=== PATIENT | male | born 1985 | race Caucasian/White ===

== ENCOUNTER 2019-08-30 07:00 | Emergency (ER) | payer OTHER ==
[2019-08-30] MEDS ORDERED: BENADRYL 50 MG/ML IV ONE (07:25)
[2019-08-30] MEDS ORDERED: MORPHINE SULFATE 4 MG INJ IV ONE (07:25)
[2019-08-30] MEDS ORDERED: Sodium Chloride 0.9% 1000 ML 1,000 ML IV STA ×2 (07:25→08:52)
[2019-08-30] MEDS ORDERED: Zofran 4 MG/2 ML VIAL IV ONE (07:25)
[2019-08-30] MEDS ORDERED: Inapsine 5 MG/2 ML IV ONE (07:25)
[2019-08-30] MEDS ORDERED: Zofran 4 MG/2 ML VIAL ONE (07:35)
[2019-08-30] MEDS ORDERED: BENADRYL 50 MG/ML ONE (07:35)
[2019-08-30] MEDS ORDERED: Inapsine 5 MG/2 ML ONE (07:35)
[2019-08-30] MEDS ORDERED: MORPHINE SULFATE 4 MG INJ ONE (07:36)
[2019-08-30] MEDS ORDERED: Sodium Chloride 0.9% 1000 ML 1,000 ML ONE ×2 (07:36→08:24)
--- NOTE | 2019-08-30 07:36 | ERPHSYRPT ---
- History of Present Illness Time Seen by Provider: 08/30/19 07:18 Patient Subjective Stated Complaint: pt states that he has been vomiting every 20 minutes since 0200 this morning, pt states headache and throat pain due to vomiting, pt states that he has diarrhea everytime he vomites Triage Nursing Assessment: pt ambulated into the er, pt is axo x4, pt c/o n/v/d , pt has hypoactive bowel sounds, abdomen is obese and soft, pt has tenderness to midline abdomen, pt is tachycardic, pt is hypertensive Physician History: Epigastric pain, N/V, started at 2 am Location: epigastric Quality: sharp, N/V Radiation: none Severity: moderate Duration: 2 am Timing: suddenly Modifying factors/associated signs and symptoms: none tried, diarrhea Timing/Duration: today Activities at Onset: none Quality: sharpness Abdominal Pain Onset Location: epigastric Pain Radiation: no radiation Allergies/Adverse Reactions: bupropion [From Wellbutrin] Allergy (Verified 08/30/19 07:17) Home Medications: Atorvastatin Calcium 10 mg PO HS 08/30/19 [History] Lisinopril/Hydrochlorothiazide [Lisinopril-Hctz 20-25 mg Tab] 1 tab PO DAILY [History] Metformin HCl 1,000 mg PO BID 08/30/19 [History] Mometasone Furoate [Asmanex Hfa] 1 puff IH BID 08/30/19 [History] clonazePAM [Clonazepam] 0.25 mg PO BID 08/30/19 [History] Hx Tetanus, Diphtheria Vaccination/Date Given: Yes Hx Influenza Vaccination/Date Given: Yes Hx Pneumococcal Vaccination/Date Given: Yes Immunizations Up to Date: Yes - Review of Systems Constitutional: No Fever, No Chills Eyes: No Symptoms Ears, Nose, & Throat: No Symptoms Respiratory: No Cough, No Dyspnea Cardiac: No Chest Pain, No Edema, No Syncope Abdominal/Gastrointestinal: Abdominal Pain, Nausea, Vomiting, Diarrhea Genitourinary Symptoms: No Dysuria Musculoskeletal: No Back Pain, No Neck Pain Skin: No Rash Neurological: No Dizziness, No Focal Weakness, No Sensory Changes Psychological: No Symptoms Endocrine: No Symptoms All Other Systems: Reviewed and Negative - Past Medical History Pertinent Past Medical History: Yes Cardiac History: High Cholesterol, Hypertension Respiratory History: Asthma Endocrine Medical History: Diabetes Type II Psycho-Social History: Anxiety - Past Surgical History Past Surgical History: Yes Gastrointestinal: Cholecystectomy Other Surgical History: distal bicep repair - Social History Smoking Status: Never smoker Exposure to second hand smoke: No Drug Use: none Patient Lives Alone: No - Nursing Vital Signs Nursing Vital Signs: Initial Vital Signs Temperature 98.4 F 08/30/19 07:01 Pulse Rate 131 H 08/30/19 07:01 Respiratory Rate 16 08/30/19 07:01 Blood Pressure 162/108 08/30/19 07:01 O2 Sat by Pulse Oximetry 96 08/30/19 07:01 Pain Scale Pain Intensity 0 - Physical Exam General Appearance: no apparent distress, alert Eye Exam: PERRL/EOMI, eyes nml inspection Ears, Nose, Throat Exam: normal ENT inspection, pharynx normal, moist mucous membranes Neck Exam: normal inspection, non-tender, supple, full range of motion Respiratory Exam: normal breath sounds, lungs clear, No respiratory distress Cardiovascular Exam: regular rate/rhythm, normal heart sounds Gastrointestinal/Abdomen Exam: soft, tenderness (epigastric tenderness, no rebound or guarding ), No mass Back Exam: normal inspection, normal range of motion, No CVA tenderness, No vertebral tenderness Extremity Exam: normal inspection, normal range of motion, pelvis stable Neurologic Exam: alert, oriented x 3, cooperative, normal mood/affect, nml cerebellar function, sensation nml, No motor deficits Skin Exam: normal color, warm, dry SpO2: 96 - Course Nursing assessment & vital signs reviewed: Yes EKG Interpreted by Me: RATE, Sinus Tach Ordered Tests: Active Orders 24 hr Category Date Time Status EKG-ER Only STAT Care 08/30/19 07:25 Active IV Insertion STAT Care 08/30/19 07:25 Active Nursing [Miscellaneous Nursing Order] ROUTINE Care 08/30/19 09:29 Active ABDOMEN AND PELVIS W CONTRAST [CT] Stat Exams 08/30/19 07:26 Completed CHEST 2 VIEWS (PA AND LAT) Stat Exams 08/30/19 07:25 Completed ABG [ARTERIAL BLOOD GASES] Stat Lab 08/30/19 08:22 Completed CBC W DIFF Stat Lab 08/30/19 07:40 Completed CMP Stat Lab 08/30/19 07:40 Completed CMP Stat Lab 08/30/19 10:25 Completed LIPASE Stat Lab 08/30/19 07:40 Completed TROPONIN Q3H Lab 08/30/19 07:40 Completed TROPONIN Q3H Lab 08/30/19 10:25 Completed TROPONIN Q3H Lab 08/30/19 13:30 Ordered TROPONIN Q3H Lab 08/30/19 16:30 Ordered TROPONIN Q3H Lab 08/30/19 19:30 Ordered UA W/RFX UR CULTURE Stat Lab 08/30/19 08:53 Completed Medication Summary Discontinued Medications Generic Name Dose Route Start Last Admin Trade Name Freq PRN Reason Stop Dose Admin Diphenhydramine HCl 25 mg 08/30/19 07:25 08/30/19 07:51 Benadryl 50 Mg/Ml IV 08/30/19 07:26 Not Given STAT ONE Diphenhydramine HCl Confirm 08/30/19 07:35 Benadryl 50 Mg/Ml Administered 08/30/19 07:36 Dose 50 mg .ROUTE .STK-MED ONE Droperidol 1.25 mg 08/30/19 07:25 08/30/19 07:48 Inapsine 5 Mg/2 Ml IV 08/30/19 07:26 1.25 mg STAT ONE Administration Droperidol Confirm 08/30/19 07:35 Inapsine 5 Mg/2 Ml Administered 08/30/19 07:36 Dose 5 mg .ROUTE .STK-MED ONE Sodium Chloride 1,000 mls @ 999 mls/hr 08/30/19 07:25 08/30/19 08:52 Sodium Chloride 0.9% 1000 Ml IV 08/30/19 08:25 Infused .Q1H1M STA Infusion Sodium Chloride Confirm 08/30/19 07:36 Sodium Chloride 0.9% 1000 Ml Administered 08/30/19 07:37 Dose 1,000 mls @ ud .ROUTE .STK-MED ONE Sodium Chloride Confirm 08/30/19 08:24 Sodium Chloride 0.9% 1000 Ml Administered 08/30/19 08:25 Dose 1,000 mls @ ud .ROUTE .STK-MED ONE Sodium Chloride 1,000 mls @ 999 mls/hr 08/30/19 08:52 08/30/19 10:27 Sodium Chloride 0.9% 1000 Ml IV 08/30/19 09:52 Infused .Q1H1M STA Infusion Lorazepam 1 mg 08/30/19 08:57 08/30/19 08:59 Ativan 2 Mg/1 Ml Vial IV 08/30/19 08:58 1 mg STAT ONE Administration Lorazepam Confirm 08/30/19 08:59 Ativan 2 Mg/1 Ml Vial Administered 08/30/19 09:00 Dose 2 mg .ROUTE .STK-MED ONE Morphine Sulfate 4 mg 08/30/19 07:25 08/30/19 07:49 Morphine Sulfate 4 Mg Inj IV 08/30/19 07:26 4 mg STAT ONE Administration Morphine Sulfate Confirm 08/30/19 07:36 Morphine Sulfate 4 Mg Inj Administered 08/30/19 07:37 Dose 4 mg .ROUTE .STK-MED ONE Ondansetron HCl 4 mg 08/30/19 07:25 08/30/19 07:48 Zofran 4 Mg/2 Ml Vial IV 08/30/19 07:26 4 mg STAT ONE Administration Ondansetron HCl Confirm 08/30/19 07:35 Zofran 4 Mg/2 Ml Vial Administered 08/30/19 07:36 Dose 4 mg .ROUTE .STK-MED ONE Lab/Rad Data: Laboratory Result Diagrams 08/30/19 07:40 08/30/19 10:25 Laboratory Results 08/30/19 08/30/19 08/30/19 Range/Units 10:25 10:25 08:53 WBC (4.0-10.5) K/mm3 RBC (4.1-5.6) M/mm3 Hgb (12.5-18.0) gm/dl Hct (42-50) % MCV (78-100) fl MCH (26-32) pg MCHC (32-36) g/dl RDW (11.5-14.0) % Plt Count (150-450) K/mm3 MPV (7.5-11.0) fl Gran % (36.0-66.0) % Eos # (Auto) (0-0.5) Absolute Lymphs (auto) (1.0-4.6) Absolute Monos (auto) (0.0-1.3) Lymphocytes % (24.0-44.0) % Monocytes % (0.0-12.0) % Eosinophils % (0.00-5.0) % Basophils % (0.0-0.4) % Absolute Granulocytes (1.4-6.9) Basophils # (0-0.4) Puncture Site pCO2 (35-45) mmHg pO2 (75-100) mmHg Base Excess (-2.0-2.0) O2 Saturation (94-100) g/dF ABG pH (7.35-7.45) ABG HCO3 (22-28) ABG O2 Sat (Measured) (95-100) % Oniel Test A-a Gradient a/A Ratio Hemoglobin Carboxyhemoglobin (0.0-6.9) % THgb Methemoglobin (1.4-1.5) % Temperature C POC O2 Flow Rate % Sodium 136 L (137-145) mmol/L Potassium 4.1 (3.5-5.1) mmol/L Chloride 100 (98-107) mmol/L Carbon Dioxide 26 (22-30) mmol/L Anion Gap 14.3 (5-15) MEQ/L BUN 14 (9-20) mg/dL Creatinine 0.82 (0.66-1.25) mg/dL Estimated GFR > 60.0 ML/MIN Glucose 212 H (74-106) mg/dL Calcium 8.6 (8.4-10.2) mg/dL Total Bilirubin 0.70 (0.2-1.3) mg/dL AST 77 H (17-59) U/L ALT 87 H (0-50) U/L Alkaline Phosphatase 84 (38-126) U/L Troponin I < 0.012 (0.000-0.034) ng/mL Serum Total Protein 7.1 (6.3-8.2) g/dL Albumin 4.1 (3.5-5.0) g/dL Lipase (23-300) U/L Urine Color YELLOW (YELLOW) Urine Appearance CLEAR (CLEAR) Urine pH 6.0 (5-6) Ur Specific [place] 1.046 (1.005-1.025) Urine Protein NEGATIVE (Negative) Urine Ketones SMALL (NEGATIVE) Urine Blood NEGATIVE (0-5) Evelio/ul Urine Nitrite NEGATIVE (NEGATIVE) Urine Bilirubin NEGATIVE (NEGATIVE) Urine Urobilinogen NEGATIVE (0-1) mg/dL Ur Leukocyte Esterase NEGATIVE (NEGATIVE) Urine WBC (Auto) 0-2 (0-5) /HPF Urine RBC (Auto) 0-2 (0-2) /HPF U Epithel Cells (Auto) RARE (FEW) /HPF Urine Bacteria (Auto) RARE (NEGATIVE) /HPF Urine Mucus (Auto) SLIGHT (NEGATIVE) /HPF Urine Culture Reflexed NO (NO) Urine Glucose 150 (NEGATIVE) mg/dL Influenza Type A Ag (NEGATIVE) Influenza Type B Ag (NEGATIVE) RSV (PCR) (Negative) 08/30/19 08/30/19 08/30/19 Range/Units 08:22 07:40 07:40 WBC (4.0-10.5) K/mm3 RBC (4.1-5.6) M/mm3 Hgb (12.5-18.0) gm/dl Hct (42-50) % MCV (78-100) fl MCH (26-32) pg MCHC (32-36) g/dl RDW (11.5-14.0) % Plt Count (150-450) K/mm3 MPV (7.5-11.0) fl Gran % (36.0-66.0) % Eos # (Auto) (0-0.5) Absolute Lymphs (auto) (1.0-4.6) Absolute Monos (auto) (0.0-1.3) Lymphocytes % (24.0-44.0) % Monocytes % (0.0-12.0) % Eosinophils % (0.00-5.0) % Basophils % (0.0-0.4) % Absolute Granulocytes (1.4-6.9) Basophils # (0-0.4) Puncture Site RIGHT RADIAL pCO2 38 (35-45) mmHg pO2 72 L (75-100) mmHg Base Excess 3.1 H (-2.0-2.0) O2 Saturation 94.1 (94-100) g/dF ABG pH 7.46 H (7.35-7.45) ABG HCO3 27.0 (22-28) ABG O2 Sat (Measured) 95.1 (95-100) % Oniel Test YES A-a Gradient 30 a/A Ratio 0.71 Hemoglobin 14.5 Carboxyhemoglobin 0.7 (0.0-6.9) % THgb Methemoglobin 0.3 L (1.4-1.5) % Temperature 37.0 C POC O2 Flow Rate 21 % Sodium (137-145) mmol/L Potassium 4.2 (3.5-5.1) mmol/L Chloride (98-107) mmol/L Carbon Dioxide (22-30) mmol/L Anion Gap (5-15) MEQ/L BUN (9-20) mg/dL Creatinine (0.66-1.25) mg/dL Estimated GFR ML/MIN Glucose (74-106) mg/dL Calcium (8.4-10.2) mg/dL Total Bilirubin (0.2-1.3) mg/dL AST (17-59) U/L ALT (0-50) U/L Alkaline Phosphatase (38-126) U/L Troponin I < 0.012 (0.000-0.034) ng/mL Serum Total Protein (6.3-8.2) g/dL Albumin (3.5-5.0) g/dL Lipase (23-300) U/L Urine Color (YELLOW) Urine Appearance (CLEAR) Urine pH (5-6) Ur Specific [place] (1.005-1.025) Urine Protein (Negative) Urine Ketones (NEGATIVE) Urine Blood (0-5) Evelio/ul Urine Nitrite (NEGATIVE) Urine Bilirubin (NEGATIVE) Urine Urobilinogen (0-1) mg/dL Ur Leukocyte Esterase (NEGATIVE) Urine WBC (Auto) (0-5) /HPF Urine RBC (Auto) (0-2) /HPF U Epithel Cells (Auto) (FEW) /HPF Urine Bacteria (Auto) (NEGATIVE) /HPF Urine Mucus (Auto) (NEGATIVE) /HPF Urine Culture Reflexed (NO) Urine Glucose (NEGATIVE) mg/dL Influenza Type A Ag NEGATIVE (NEGATIVE) Influenza Type B Ag NEGATIVE (NEGATIVE) RSV (PCR) NEGATIVE (Negative) 08/30/19 08/30/19 Range/Units 07:40 07:40 WBC 11.2 H (4.0-10.5) K/mm3 RBC 5.19 (4.1-5.6) M/mm3 Hgb 15.4 (12.5-18.0) gm/dl Hct 46.8 (42-50) % MCV 90.2 (78-100) fl MCH 29.7 (26-32) pg MCHC 32.9 (32-36) g/dl RDW 13.5 (11.5-14.0) % Plt Count 293 (150-450) K/mm3 MPV 10.4 (7.5-11.0) fl Gran % 79.2 H (36.0-66.0) % Eos # (Auto) 0.34 (0-0.5) Absolute Lymphs (auto) 0.80 L (1.0-4.6) Absolute Monos (auto) 1.16 (0.0-1.3) Lymphocytes % 7.2 L (24.0-44.0) % Monocytes % 10.4 (0.0-12.0) % Eosinophils % 3.0 (0.00-5.0) % Basophils % 0.2 (0.0-0.4) % Absolute Granulocytes 8.85 H (1.4-6.9) Basophils # 0.02 (0-0.4) Puncture Site pCO2 (35-45) mmHg pO2 (75-100) mmHg Base Excess (-2.0-2.0) O2 Saturation (94-100) g/dF ABG pH (7.35-7.45) ABG HCO3 (22-28) ABG O2 Sat (Measured) (95-100) % Oniel Test A-a Gradient a/A Ratio Hemoglobin Carboxyhemoglobin (0.0-6.9) % THgb Methemoglobin (1.4-1.5) % Temperature C POC O2 Flow Rate % Sodium 136 L (137-145) mmol/L Potassium 4.3 (3.5-5.1) mmol/L Chloride 96 L (98-107) mmol/L Carbon Dioxide 23 (22-30) mmol/L Anion Gap 21.1 H (5-15) MEQ/L BUN 15 (9-20) mg/dL Creatinine 0.95 (0.66-1.25) mg/dL Estimated GFR > 60.0 ML/MIN Glucose 264 H (74-106) mg/dL Calcium 9.6 (8.4-10.2) mg/dL Total Bilirubin 1.00 (0.2-1.3) mg/dL AST 99 H (17-59) U/L ALT 103 H (0-50) U/L Alkaline Phosphatase 112 (38-126) U/L Troponin I (0.000-0.034) ng/mL Serum Total Protein 8.4 H (6.3-8.2) g/dL Albumin 4.9 (3.5-5.0) g/dL Lipase 118 (23-300) U/L Urine Color (YELLOW) Urine Appearance (CLEAR) Urine pH (5-6) Ur Specific [place] (1.005-1.025) Urine Protein (Negative) Urine Ketones (NEGATIVE) Urine Blood (0-5) Evelio/ul Urine Nitrite (NEGATIVE) Urine Bilirubin (NEGATIVE) Urine Urobilinogen (0-1) mg/dL Ur Leukocyte Esterase (NEGATIVE) Urine WBC (Auto) (0-5) /HPF Urine RBC (Auto) (0-2) /HPF U Epithel Cells (Auto) (FEW) /HPF Urine Bacteria (Auto) (NEGATIVE) /HPF Urine Mucus (Auto) (NEGATIVE) /HPF Urine Culture Reflexed (NO) Urine Glucose (NEGATIVE) mg/dL Influenza Type A Ag (NEGATIVE) Influenza Type B Ag (NEGATIVE) RSV (PCR) (Negative) - Progress Progress: improved Progress Note: 08/30/19 07:39 differential diagnosis includes kidney stone, compression fracture, infection, UTI, triple AAA - basic labs including: CBC, lipase, CMP, UA - insert IV for fluids, pain meds, nausea control - consider imaging: CT ab/pelvis - influenza swab, EKG 08/30/19 11:09 Labs demonstrate hyperglycemia with anion gap. No acidosis on ABG though. Therefore, DKA less likely. 2L of fluid were given. Repeat CMP showed resolution of the gap, decrease glucose. Patient also had improvement of liver enzymes. Therefore, most likely just dehydration. We will give patient stool sample container to go home with. He can turn it into our lab at anytime. Orders placed by me, but PCP will need to follow up on them. Overall, patient much improved. He is taking PO and no longer vomiting. He's abdominal pain was resolved on reexam. We will discharge patient home at this point in time for follow up with PCP. He will need to return here for new or changing symptoms. Counseled pt/family regarding: lab results, diagnosis, need for follow-up - Departure Departure Disposition: Home Clinical Impression: Hyperglycemia, Nausea & vomiting, Viral gastroenteritis Condition: Stable Critical Care Time: No Referrals: DOCTOR,NO FAMILY [NON-STAFF PHY W/O PRIVILEGES] - Instructions: Nausea -- Adult, Vomiting -- Adult Prescriptions: Ondansetron ODT 4 MG [Zofran Odt 4 mg] 4 mg PO Q6H PRN PRN #10 tab.rapdis PRN Reason: Vomiting
[2019-08-30 07:45] LABS: Absolute Neutrophil Ct (ANC) 8.85 (1.4-6.9); BASOPHIL % 0.2 % (0.0-0.4); Basophil (Absolute #) 0.02 (0-0.4); Eosinophil (Absolute #) 0.34 (0-0.5); Hematocrit 46.8 % (42-50); Hemoglobin 15.4 gm/dl (12.5-18.0); Lymphocytes % 7.2 % (24.0-44.0); Mean Cell Volume 90.2 fl (78-100); Mean Corpuscular Hemoglobin 29.7 pg (26-32); Mean Corpuscular Hgb Concent. 32.9 g/dl (32-36); Mean Platelet Volume 10.4 fl (7.5-11.0); Monocyte (Absolute #) 1.16 (0.0-1.3); Monocytes % 10.4 % (0.0-12.0); Neutrophil % 79.2 % (36.0-66.0); Platelet Count 293 K/mm3 (150-450); Red Blood Count 5.19 M/mm3 (4.1-5.6); Red Cell Distribution Width 13.5 % (11.5-14.0); White Blood Count 11.2 K/mm3 (4.0-10.5)
[2019-08-30 07:51] LABS: ALBUMIN 4.9 g/dL (3.5-5.0); ALKALINE PHOSPHATASE 112 U/L (38-126); ANION GAP 21.1 MEQ/L (5-15); BLOOD UREA NITROGEN 15 mg/dL (9-20); CHLORIDE 96 mmol/L (98-107); Calcium 9.6 mg/dL (8.4-10.2); Carbon Dioxide 23 mmol/L (22-30); Creatinine 1 0.95 mg/dL (0.66-1.25); Glucose 264 mg/dL (74-106); LIPASE 118 U/L (23-300); Potassium 4.3 mmol/L (3.5-5.1); SGOT/AST 99 U/L (17-59); SGPT/ALT 103 U/L (0-50); SODIUM 136 mmol/L (137-145); Total Protein 8.4 g/dL (6.3-8.2)
[2019-08-30 08:25] LABS: A-aADO2 30; ABG HEMOGLOBIN 14.5; ABG POTASSIUM 4.2 (3.5-5.1); ABG SITE RIGHT RADIAL; ALLEN TEST OK? YES; ARTERIAL BLD GAS O2 SATURATION 95.1 % (95-100); ARTERIAL BLOOD GAS BASE EXCESS 3.1 (-2.0-2.0); ARTERIAL BLOOD GAS FIO2 21 %; ARTERIAL BLOOD GAS PCO2 38 mmHg (35-45); ARTERIAL BLOOD GAS PO2 72 mmHg (75-100); ARTERIAL BLOOD GAS pH 7.46 (7.35-7.45); CARBOXYHEMOGLOBIN 0.7 % THgb (0.0-6.9); HGB O2 SAT 94.1 g/dF (94-100); Methhemoglobin 0.3 % (1.4-1.5); paO2 pAO1 0.71
[2019-08-30 08:33] LABS: INFLUENZA A NEGATIVE (NEGATIVE); INFLUENZA B NEGATIVE (NEGATIVE); RESPIRATORY SYNCTIAL VIRUS NEGATIVE (Negative)
--- NOTE | 2019-08-30 08:39 | XRAY ---
Indication: Epigastric pain and vomiting. Comparison: None PA/lateral chest demonstrates normal heart and lungs. Bony thorax intact with minimal degenerative changes.
--- NOTE | 2019-08-30 08:42 | XRAY ---
Indication: Epigastric pain and vomiting. Multiple contiguous axial images obtained through the abdomen and pelvis using 80 cc Isovue 370 contrast only. Comparison: None Lung bases are essentially clear. Heart is not enlarged. Visualized distal esophagus images mild circumferential wall thickening, possible esophagitis. Noncontrasted stomach and bowel loops appear nonobstructed. Normal appendix. Mild fluid throughout the colon including rectum favoring diarrhea. Previous cholecystectomy. No free fluid/air. Diffuse fatty liver and 6 mm nonobstructing left renal calculus. Remaining liver, pancreas, spleen, adrenal glands, kidneys, ureters, bladder, and aorta appear unremarkable. No pathologic retroperitoneal lymphadenopathy. Osseous structures intact with minimal/mild degenerative changes throughout the thoracolumbar spine. 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 Impression: 1. Fluid throughout the colon favoring diarrhea. 2. Distal esophageal circumferential wall thickening. Rule out esophagitis. 3. Incidental fatty liver, nonobstructing left renal calculus, and right femur head bone cyst. 4. Remaining CT abdomen/pelvis with contrast exam is negative.
[2019-08-30] MEDS ORDERED: Ativan 2 MG/1 ML VIAL IV ONE (08:57)
[2019-08-30] MEDS ORDERED: Ativan 2 MG/1 ML VIAL ONE (08:59)
[2019-08-30 09:21] LABS: Appearance CLEAR (CLEAR); Bilirubin NEGATIVE (NEGATIVE); Blood NEGATIVE Ery/ul (0-5); Glucose 150 mg/dL (NEGATIVE); Ketones SMALL (NEGATIVE); Leukocyte Esterase NEGATIVE (NEGATIVE); Mucus SLIGHT /HPF (NEGATIVE); Nitrite NEGATIVE (NEGATIVE); Protein,Urine Dip NEGATIVE (Negative); Specific Gravity 1.046 (1.005-1.025); Urobilinogen NEGATIVE mg/dL (0-1)
[2019-08-30 09:26] LABS: Bacteria RARE /HPF (NEGATIVE); Epithelial Cells RARE /HPF (FEW); RBC 0-2 /HPF (0-2); WBC 0-2 /HPF (0-5)
[2019-08-30 10:45] LABS: ALBUMIN 4.1 g/dL (3.5-5.0); ALKALINE PHOSPHATASE 84 U/L (38-126); ANION GAP 14.3 MEQ/L (5-15); BLOOD UREA NITROGEN 14 mg/dL (9-20); CHLORIDE 100 mmol/L (98-107); Calcium 8.6 mg/dL (8.4-10.2); Carbon Dioxide 26 mmol/L (22-30); Creatinine 1 0.82 mg/dL (0.66-1.25); Glucose 212 mg/dL (74-106); Potassium 4.1 mmol/L (3.5-5.1); SGOT/AST 77 U/L (17-59); SGPT/ALT 87 U/L (0-50); SODIUM 136 mmol/L (137-145); Total Protein 7.1 g/dL (6.3-8.2)
[2019-08-30 11:07] VITALS: BP 128/86; PULSE 111
[2019-08-30 11:13] VITALS: O2SAT 96
== END 2019-08-30 11:20 | disposition home or self-care (01) ==
LOC: MERGE 07:00 → ED 07:00
DX: E11.65 Type 2 diabetes mellitus with hyperglycemia (principal); Z79.4 Long term (current) use of insulin; A08.4 Viral intestinal infection, unspecified; R11.2 Nausea with vomiting, unspecified; I10 Essential (primary) hypertension; F41.9 Anxiety disorder, unspecified; J45.909 Unspecified asthma, uncomplicated; E78.00 Pure hypercholesterolemia, unspecified; Z79.899 Other long term (current) drug therapy
CPT/HCPCS: 36000; 36415; 36600; 71046; 74177; 80053; 81001; 82375; 82803; 83690; 84484; 85025; 87631; 93005; 96360; 96374; 96375; 99285; J1200; J2060; J2270; J2405